=== PATIENT | female | born 1985 | race American Indian/Alaskan Native ===

== ENCOUNTER 2017-02-20 20:53 | Emergency (ER) | payer MEDICAID, OTHER ==
[2017-02-20 22:58] LABS: Bilirubin,Urine NEG (Negative); Blood,Urine SM (Negative); Ketones,Urine NEG (Negative); Leukocyte Esterase,Urine NEG (Negative); Mucus,Urine FEW /HPF; Nitrite,Urine NEG (Negative); Protein,Urine <15 mg/dL mg/dL (Negative); Urobilinogen,Urine < 2.0 mg/dL (<2.0)
[2017-02-20] MEDS ORDERED: LIDOCAINE VISCOUS 2% ONE (23:25)
[2017-02-20] MEDS ORDERED: LIDOCAINE VISCOUS 2% PO ONE (23:55)
[2017-02-21] MEDS ORDERED: ROCEPHIN IM ONE (02:32)
[2017-02-21] MEDS ORDERED: XYLOCAINE 1% MPF 5 mL INFILTRATI ONE (02:32)
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
[2017-02-21 03:23] VITALS: BP 131/84
== END 2017-02-21 03:22 | disposition home or self-care (01) ==
LOC: ED 20:53
DX: J02.9 Acute pharyngitis, unspecified (principal); M54.2 Cervicalgia
CPT/HCPCS: 81001; 81025; 87116; 87210; 87430; 87591; 96372; 99284; J0696